=== PATIENT | female | born 1965 | race Caucasian/White ===

== ENCOUNTER 2017-09-30 15:28 | Emergency (ER) | payer BC, OTHER ==
[~2017-09-30] VITALS: Ht 165.1 cm; Wt 111.1 kg
[~2017-09-30 15:28] MED LIST: BACTRIM DS TAB1 EACH PO; DOXYCYCLINE 10100 MG PO; NOHOMEMEDICATIONS; NORCO 5-325 TA1 EACH PO; ULTRAM 50MG TAB50 MG PO
[2017-09-30 16:32] LABS: ABSOLUTE NEUTROPHILS 8.8 thou/uL (1.4-8.2); BASOPHILS 0.5 % (0.0-2.0); EOSINOPHILS 0.5 % (0.0-3.0); HEMATOCRIT 34.9 % (37.0-47.0); HEMOGLOBIN 11.9 gm/dL (12.0-15.0); LYMPHOCYTES 14.6 % (24.0-44.0); MCHC 34.1 g/dL (28.0-37.0); MCV 90.8 fL (80.0-100.0); MONOCYTES 7.5 % (1.0-8.0); PLATELET COUNT 332 thou/uL (150-400); POLYS 76.9 % (36.0-66.0); RBC 3.84 mil/uL (4.20-5.00); RDW 13.2 % (10.5-14.5); WBC 11.4 thou/uL (4.0-11.0)
[2017-09-30 16:39] LABS: CALCIUM 8.7 mg/dL (8.5-10.1); CREATININE 0.7 mg/dL (0.6-1.0); POTASSIUM 3.4 mmol/L (3.5-5.1)
[2017-09-30 16:44] LABS: ALBUMIN 3.3 g/dL (3.4-5.0); TOTAL BILIRUBIN 0.5 mg/dL (<0.1-1.0); TOTAL PROTEIN 8.1 g/dL (6.4-8.2)
[2017-09-30] MEDS ORDERED: CLEOCIN HCL150 MG PO (16:54)
[2017-09-30] MEDS ORDERED: HYDROCODONE-AP1 EAC6 PO (16:54)
[2017-09-30 18:12] VITALS: BP 150/72
== END 2017-09-30 18:25 | disposition home or self-care (01) ==
LOC: ER 15:28
PROVIDERS: Physician Assistant
DX: L03.116 Cellulitis of left lower limb (principal); R51 Headache; R63.0 Anorexia; M79.1 Myalgia; Z88.0 Allergy status to penicillin

== ENCOUNTER 2017-10-03 15:33 | Emergency (ER) | payer BC, OTHER ==
[~2017-10-03] VITALS: Ht 165.1 cm; Wt 111.1 kg
[~2017-10-03 15:33] MED LIST changes: +CLEOCIN HCL150 MG PO; +HYDROCODONE-AP1 EAC6 PO
[2017-10-03 16:29] VITALS: BP 143/73
[2017-10-03 16:56] LABS: ABSOLUTE NEUTROPHILS 5.7 thou/uL (1.4-8.2); BASOPHILS 1.1 % (0.0-2.0); EOSINOPHILS 2.3 % (0.0-3.0); HEMATOCRIT 35.2 % (37.0-47.0); HEMOGLOBIN 11.8 gm/dL (12.0-15.0); LYMPHOCYTES 26.7 % (24.0-44.0); MCH 31.1 pg (26.0-34.0); MCHC 33.6 g/dL (28.0-37.0); MCV 92.5 fL (80.0-100.0); MONOCYTES 8.2 % (1.0-8.0); PLATELET COUNT 362 thou/uL (150-400); POLYS 61.7 % (36.0-66.0); RDW 13.3 % (10.5-14.5); WBC 9.2 thou/uL (4.0-11.0)
[2017-10-03] MEDS ORDERED: CLEOCIN HCL150 MG PO (17:00)
[2017-10-03 17:06] LABS: CREATININE 0.8 mg/dL (0.6-1.0)
== END 2017-10-03 17:21 | disposition home or self-care (01) ==
LOC: ER 15:33
PROVIDERS: Physician Assistant
DX: L03.116 Cellulitis of left lower limb (principal); Z90.49 Acquired absence of other specified parts of digestive tract; Z88.0 Allergy status to penicillin

== ENCOUNTER → 2017-10-04 | Outpatient (CLI) | payer BC, OTHER ==
[~2017-10-04] VITALS: Ht 165.1 cm; Wt 111.9 kg
--- NOTE | ~2017-10-04 | HC ---
[facility] [place] [address] CONSULTATION Name: ROSAKRIS Room #: REG KEVIN Casey#: [id number] Admission: 10/04/17 Attend Phys: Roshan Orr Discharge: Date of : 65 Report #: [id number] THIS REPORT FOR: //name// CC: Roshan Rincon DATE OF SERVICE: 10/04/2017 HISTORY OF PRESENT ILLNESS: The patient is a 52-year-old woman who apparently was visiting family in [place] and when she suffered some mosquito bites to the left leg and went on to develop an infection of the leg. She was initially treated with Bactrim-DS 1 tablet twice daily as well as tramadol. The patient subsequently had improvement of the mosquito bite of the left leg, but she did make a trip to [place] and drove for 8 hours and then, she developed again some redness and swelling of the left leg and feelings of feverishness. On account of these problems, she visited with the Emergency Room on 09/30/2017 and 10/03/2017 and she was diagnosed to have possible cellulitis of the leg and she was prescribed clindamycin 150 mg twice daily, hydrocodone 5/acetaminophen 325 one tablet every 4 hours for 7 days. Obviously, she is not better and visited again in the Emergency Room yesterday and she advised the Emergency Room physician that I was seeing her previously, but no one bothered to notify me of her visit. The patient is still having some pain on the left leg as well as swelling and redness and feeling of feverishness. Culture of the skin lesion was obtained yesterday and unfortunately, we are using [facility] and the specimen is sent to [place], [place] and as of this time today, I have no results of the Gram stain. PAST MEDICAL HISTORY: Fractured left ankle with recurrent infection requiring removal of foreign bodies. 1981. Laparoscopic cholecystectomy. HISTORY OF PENICILLIN ALLERGY. SOCIAL HISTORY: Children grown. No tobacco, no alcohol. REVIEW OF SYSTEMS: Essentially not contributory besides feeling of feverishness and discomfort on the left leg. PHYSICAL EXAMINATION: GENERAL: This is a well-developed woman, not toxic looking, no distress. VITAL SIGNS: Temperature , pulse 78, respirations not obtained. BP 139/74, saturation 97% on room air. She was afebrile in the Emergency Room on 09/30/2017 and 10/03/2017. HEENMT: Within range. NECK: Supple, no thyromegaly. BREASTS: Deferred. LUNGS: Clear. HEART: S1, S2. No gallop or murmur. ABDOMEN: Soft, no masses or megaly. [address] [address] CONSULTATION Name: LEEKRIS Room #: REG KEVIN Casey#: [id number] Admission: 10/04/17 Attend Phys: Roshan Orr Discharge: Date of : 65 Report #: [id number] EXTREMITIES: Reveals surgical scars of previous open reduction and internal fixation of fracture, left tibia fibula. There is redness of the left leg as well as small skin defect with no purulence. NEUROLOGIC: Grossly within normal limits. LABORATORY DATA: On 09/30/2017 and 10/03/2017 in the Emergency Room revealed initially some hypokalemia, glucose 108. The white blood cell count initially was 11,400. It drops to 9200 on 10/03/2017, hemoglobin a bit low at 11.8 g/dL. Blood cultures were obtained on 09/30/2017 in afebrile patient and this blood culture remained negative. On 10/03/2017 at 16:45, culture of the left leg lesion was taken and we have no reports as of this time from [facility] yet. RADIOLOGY EVALUATION: An x-ray of the left ankle was obtained on 09/30/2017 and the patient has chronic changes on the left tibia and there is a plate and multiple screws on the left fibula. ASSESSMENT: 1. Cellulitis, left leg. 2. History of fracture, left tibia and fibula and open reduction internal fixation. 2. PENICILLIN ALLERGY. 3. History of and cholecystectomy. SUGGESTION: Recommend that the dose of clindamycin be increased to 300 mg by mouth 3 times daily for at least 7-10 days. The patient will also have an ESR and CRP to see if those are elevated because the radiologic findings of the left tibia are possibly compatible with chronic osteomyelitis. I will recommend that the patient not apply any topical ointments or creams to the left leg and I will visit with her again in 7 days if she is not completely better. <ELECTRONICALLY SIGNED> By: Roshan Rincon MD 10/05/17 0906 [id number] [id number] Roshan Rincon MD /nt
[2017-10-04 10:50] VITALS: BP 139/74
== END ==
LOC: SEN 07:50
DX: L03.116 Cellulitis of left lower limb (principal); Z88.0 Allergy status to penicillin

== ENCOUNTER → 2017-10-13 | Outpatient (CLI) | payer BC, OTHER ==
[~2017-10-13] VITALS: Ht 165.1 cm; Wt 111.9 kg
[2017-10-13 10:44] VITALS: BP 109/87
== END ==
LOC: SEN
DX: M79.605 Pain in left leg (principal); M79.604 Pain in right leg; L03.116 Cellulitis of left lower limb; R61 Generalized hyperhidrosis

== ENCOUNTER → 2017-10-17 | Outpatient (CLI) | payer BC, OTHER | LOC: NUC 08:15 | DX: M86.8X7 Other osteomyelitis, ankle and foot (principal) ==

== ENCOUNTER → 2017-11-02 | Outpatient (CLI) | payer BC, OTHER ==
[2017-11-02 11:16] VITALS: BP 109/77
== END ==
LOC: SEN 08:09
DX: Z09 Encounter for follow-up examination after completed treatment for conditions other than malignant neoplasm (principal); M86.8X6 Other osteomyelitis, lower leg; M17.0 Bilateral primary osteoarthritis of knee

== ENCOUNTER → 2018-02-02 | Outpatient (CLI) | payer BC, OTHER ==
[~2018-02-02] VITALS: Ht 160 cm; Wt 109.7 kg
[2018-02-02 10:39] VITALS: BP 157/85
== END ==
LOC: SEN 02-01 08:33
DX: M86.662 Other chronic osteomyelitis, left tibia and fibula (principal)

== ENCOUNTER 2018-02-09 05:35 | Day surgery (SDC) | payer BC, OTHER ==
[~2018-02-09] VITALS: Ht 165.1 cm; Wt 109.8 kg
--- NOTE | ~2018-02-09 | O ---
[facility] [place] [address] OPERATIVE REPORT Name: KRIS LEE Room #: [facility]..#: [id number] Admission: 02/09/18 Attend Phys: Dario Pabon MD Discharge: 02/09/18 Date of : 65 Report #: [id number] THIS REPORT FOR: //name// CC: Dario WEISS unknown DATE OF SERVICE: 02/09/2018 PREOPERATIVE DIAGNOSES: Left leg ulcer with chronic osteomyelitis and recent soft tissue skin ulceration. POSTOPERATIVE DIAGNOSES: Left leg ulcer with chronic osteomyelitis and recent soft tissue skin ulceration. PROCEDURE: Biopsy of skin and subcutaneous tissues and curettage and culture of distal tibial possible osteomyelitis. SURGEON: Dario Pabon M.D. INDICATIONS: This 53-year-old female has chronic osteomyelitis related to a previous tibia and fibular fracture, treated with surgical repair many years ago. She has had metal removal from the distal tibia in the past and apparently, that wound healed up adequately, but there is evidence of some ongoing chronic indolent osteomyelitis. She has remaining metal fixation in the distal fibula, but there is no problem with inflammation or skin breakdown in that region. She developed a new skin ulceration after an insect bite while traveling in [place] [address] Rincon is concerned about possible parasitic infection or Leishmaniasis as an etiology for this new skin lesion. He is also concerned about ongoing deep osteomyelitis. We have elected to debride the area of ulcer and send specimens both for pathology to evaluate for Leishmaniasis or other skin pathology and also cultures of both the skin and subcutaneous tissues and also the deeper tissues and bone. DESCRIPTION OF PROCEDURE: The patient was taken to the operating room, where she was placed under brief general anesthetic. She has been on chronic clindamycin. New IV antibiotics were held until after the procedure and new cultures were obtained. The left lower leg was meticulously prepped and draped. An Esmarch bandage was used to exsanguinate the lower leg and left as a gentle tourniquet at the upper leg. The skin ulcer is about 12-14 mm in diameter and along the medial border of the left lower leg, just posterior to the tibia. The surrounding skin edge was sharply incised and the specimen passed off to pathology for evaluation. The central necrotic area was excised as a small plug and also sent to pathology with cultures and instruction for evaluation for possible Leishmaniasis. The deeper tissues appeared to be fairly clean and adequately perfused. The ulcer did not actually extend directly down to bone and my initial impression would be that this is probably more of a superficial [address] [address] OPERATIVE REPORT Name: KRIS LEE Room #: DEP [facility] M.R.#: [id number] Admission: 02/09/18 Attend Phys: Dario Pabon MD Discharge: 02/09/18 Date of : 65 Report #: [id number] and new skin problem rather than a chronic osteomyelitis effect. With some limited dissection, I was able to reach down to the posterior aspect of the tibia. This area was gently curetted. However, the bone was certainly not directly exposed in this ulcer and I did not want to create more problems than benefit. There was no obvious bony defect and no obvious sinus tract into the bone. There was no obvious deep purulence. The surface of the bone was aggressively curetted, but I elected not to drill any holes or make any larger openings which might result in bony weakening. A deep culture was sent with some of the debris from bony curetting and the soft tissues at the medial and posterior border of the tibia. The tibia was carefully palpated both proximally and distally to look for any other areas of bony weakening or sinus tract, none were identified. The specimen for deep bone culture was sent separately from the more superficial cultures and the skin and soft tissue biopsy. The tourniquet was removed. Good hemostasis was confirmed. The wound was gently packed with gauze and a gentle compressive dressing was applied. These findings have been discussed with Dr. Rincon from Infectious Disease. I will plan to continue daily topical wound care and adjust her ongoing medical antibiotic treatment, pending the results of these biopsy findings. The patient is awakened and returned to the recovery room. She will be discharged home for ongoing topical wound care. I will plan to see her back in my office in 1-2 weeks. <ELECTRONICALLY SIGNED> By: Dario Pabon MD 02/10/18 1347 [id number] Dario Pabon MD /nt
--- NOTE | ~2018-02-09 | PATH ---
[facility] [address] [place] [address] PATHOLOGY RPT PROCEDURE Name: BRENDA ALONSO Room #: DEP [facility] M.R.#: [id number] Admission: 02/09/18 Date of : 65 Discharge: 02/09/18 Report #: [id number] Path Case #: [id number] [facility] Accession Number: [id number] . 01 Material submitted: . PART A: NECROTIC LEFT ANKLE WOUND PART B: LEFT ANKLE WOUND R/O LEISHMANIASIS . 01 Clinician provided ICD-10: M25.572 . 01 Clinical history: . Left ankle pain . 02 Diagnosis: A. Soft tissue "necrotic left ankle wound": - Extensive epidermal necrosis with underlying bacterial colonization - The GMS stain for fungus was negative. - The Giemsa stain did not reveal leishmania organism - See comment. . B. Skin "left ankle wound rule out leishmaniasis": - Dermal granulation tissue and calcification. - Extensive epidermal necrosis. - A giemsa stain was negative for leishmania organism - A GMS stain for fungus is being repeated an additional report will follow. [facility]/02/14/2018 . 02 Comment: A and B of this case was also be reviewed by Dr David Godoy . ([facility]/db; 02/10/2018) . 02 Addendum: . The GMS stain for fungus for part B1 and B2 are both negative. The diagnosis remains the same. ([facility]:pit 02/15/2018) . Professional services performed by [facility] at [facility], [address] [place] [address] , [place] [address]. [facility] performed by [facility] at [address] [place] [address], [address] [address]. [facility]/02/15/2018 Addendum Electronically Signed by Mp Johnson MD. Pathologist . 02 Electronically signed: . Mp Johnson MD, Pathologist [address] [place] [address] PATHOLOGY RPT PROCEDURE Name: BRENDA ALONSO [facility] Room #: DEP [facility].#: [id number] Admission: 02/09/18 Date of : 65 Discharge: 02/09/18 Report #: [id number] Path Case #: [id number] [facility]- [id number] . 01 Gross description: . A. The specimen is received in formalin, labeled "Brenda Alonso, necrotic left ankle lesion", is a 1.4 x 0.7 x 0.6 cm disrupted predominantly jenkins-brown necrotic, mummified skin. The specimen is serially section and entirely submitted in A1. . B. The specimen is received in formalin, labeled "Brenda Alonso, left ankle wound rule out leishmaniasis", is a cone-shaped gallego-white necrotic soft tissue with rim of skin. The specimen measures 2.2 x 1.5 x 1.0 cm per the specimen is serially section and entirely submitted in B1-B2. ([facility]; 02/09/2018) SHS/SHS . 02 Pathologist provided ICD-10: I96, B37.89, L92.8, E83.59 . 02 CPT . 437598, 583456, 460009, 044871, [id number], [id number] Specimen Comment: A courtesy copy of this report has been sent to Specimen Comment: [phone]. Specimen Comment: Report sent to Performed at: [address], [place] [id number] MD Mp Potts MD Phone: [phone] Performed at: [address] [id number] MD Emilia Powers MD Phone: [phone]
[2018-02-09 09:15] VITALS: BP 159/67
[2018-02-09 10:24] VITALS: BP 159/67
== END 2018-02-09 10:50 | disposition home or self-care (01) ==
LOC: OR 05:35 → TBA 05:35 → OR 10:50
DX: M86.8X6 Other osteomyelitis, lower leg (principal); L98.498 Non-pressure chronic ulcer of skin of other sites with other specified severity; Z98.890 Other specified postprocedural states; Z90.49 Acquired absence of other specified parts of digestive tract; Z88.0 Allergy status to penicillin; Z79.899 Other long term (current) drug therapy
CPT/HCPCS: 50010; 50101; 50386; 57091; 62110; 62900; 70005

== ENCOUNTER → 2018-02-23 | Outpatient (CLI) | payer BC, OTHER ==
[~2018-02-23] MED LIST changes: +TYLENOL325 MG PO
[2018-02-23 10:32] VITALS: BP 150/78
[2018-02-23 12:00] LABS: ABSOLUTE NEUTROPHILS 4.9 thou/uL (1.4-8.2); BASOPHILS 0.7 % (0.0-2.0); EOSINOPHILS 1.6 % (0.0-3.0); HEMATOCRIT 37.7 % (37.0-47.0); HEMOGLOBIN 13.2 gm/dL (12.0-15.0); LYMPHOCYTES 30.3 % (24.0-44.0); MCH 31.6 pg (26.0-34.0); MCV 90.2 fL (80.0-100.0); MONOCYTES 7.3 % (1.0-8.0); PLATELET COUNT 306 thou/uL (150-400); POLYS 60.1 % (36.0-66.0); RBC 4.18 mil/uL (4.20-5.00); RDW 13.4 % (10.5-14.5); WBC 8.1 thou/uL (4.0-11.0)
[2018-02-23 12:11] LABS: ALBUMIN 3.3 g/dL (3.4-5.0); ANION GAP 6 mmol/L (7-16); BUN 15 mg/dL (7-18); CALCIUM 9.1 mg/dL (8.5-10.1); CHLORIDE 104 mmol/L (98-107); CO2 30 mmol/L (21-32); CREATININE 0.7 mg/dL (0.6-1.0); GLUCOSE 90 mg/dL (74-106); POTASSIUM 4.2 mmol/L (3.5-5.1); SGOT 21 U/L (15-37); SGPT 29 U/L (30-65); SODIUM 140 mmol/L (136-145); TOTAL BILIRUBIN 0.2 mg/dL (<0.1-1.0); TOTAL PROTEIN 7.9 g/dL (6.4-8.2)
== END ==
LOC: SEN 09:13
PROVIDERS: Internal Medicine Infectious Disease
DX: Z09 Encounter for follow-up examination after completed treatment for conditions other than malignant neoplasm (principal); M86.662 Other chronic osteomyelitis, left tibia and fibula

== ENCOUNTER → 2018-03-28 | Outpatient (CLI) | payer BC, OTHER ==
[2018-03-28 12:11] LABS: ABSOLUTE NEUTROPHILS 4.9 thou/uL (1.4-8.2); BASOPHILS 0.6 % (0.0-2.0); EOSINOPHILS 1.9 % (0.0-3.0); HEMATOCRIT 40.2 % (37.0-47.0); HEMOGLOBIN 13.1 gm/dL (12.0-15.0); LYMPHOCYTES 28.4 % (24.0-44.0); MCH 30.1 pg (26.0-34.0); MCHC 32.6 g/dL (28.0-37.0); MCV 92.4 fL (80.0-100.0); MONOCYTES 7.7 % (1.0-8.0); PLATELET COUNT 308 thou/uL (150-400); POLYS 61.4 % (36.0-66.0); RBC 4.36 mil/uL (4.20-5.00); RDW 13.9 % (10.5-14.5)
== END ==
LOC: SEN 06:09
PROVIDERS: Internal Medicine Infectious Disease
DX: M86.662 Other chronic osteomyelitis, left tibia and fibula (principal); B37.3 Candidiasis of vulva and vagina; Z88.0 Allergy status to penicillin

== ENCOUNTER → 2018-06-19 | Outpatient (CLI) | payer BC, OTHER | LOC: HYPER 05-31 07:52 | DX: T81.89XA Other complications of procedures, not elsewhere classified, initial encounter (principal); L97.222 Non-pressure chronic ulcer of left calf with fat layer exposed; E78.5 Hyperlipidemia, unspecified; E66.9 Obesity, unspecified; M86.662 Other chronic osteomyelitis, left tibia and fibula; Z68.41 Body mass index [BMI] 40.0-44.9, adult; Y92.89 Other specified places as the place of occurrence of the external cause; Y83.8 Other surgical procedures as the cause of abnormal reaction of the patient, or of later complication, without mention of misadventure at the time of the procedure ==

== ENCOUNTER → 2018-07-03 | Outpatient (CLI) | payer BC, OTHER | LOC: HYPER 06:43 | DX: T81.89XD Other complications of procedures, not elsewhere classified, subsequent encounter (principal); L97.822 Non-pressure chronic ulcer of other part of left lower leg with fat layer exposed; M86.662 Other chronic osteomyelitis, left tibia and fibula; E78.5 Hyperlipidemia, unspecified; E66.9 Obesity, unspecified; Z68.41 Body mass index [BMI] 40.0-44.9, adult ==

== ENCOUNTER → 2018-07-18 | Outpatient (CLI) | payer BC, OTHER | LOC: HYPER 08:35 | DX: T81.89XD Other complications of procedures, not elsewhere classified, subsequent encounter (principal); L97.822 Non-pressure chronic ulcer of other part of left lower leg with fat layer exposed; M86.662 Other chronic osteomyelitis, left tibia and fibula; E78.5 Hyperlipidemia, unspecified; Y83.8 Other surgical procedures as the cause of abnormal reaction of the patient, or of later complication, without mention of misadventure at the time of the procedure ==

== ENCOUNTER → 2018-08-08 | Outpatient (CLI) | payer BC, OTHER | LOC: HYPER 08-01 09:05 | DX: T81.89XD Other complications of procedures, not elsewhere classified, subsequent encounter (principal); L97.222 Non-pressure chronic ulcer of left calf with fat layer exposed; M86.662 Other chronic osteomyelitis, left tibia and fibula; E78.5 Hyperlipidemia, unspecified; Y83.8 Other surgical procedures as the cause of abnormal reaction of the patient, or of later complication, without mention of misadventure at the time of the procedure ==

== ENCOUNTER → 2018-12-28 | Outpatient (CLI) | payer BC, OTHER | LOC: RAD 12:01 | DX: M17.11 Unilateral primary osteoarthritis, right knee (principal); M25.761 Osteophyte, right knee; I82.401 Acute embolism and thrombosis of unspecified deep veins of right lower extremity; L03.115 Cellulitis of right lower limb; Z88.8 Allergy status to other drugs, medicaments and biological substances; Z88.0 Allergy status to penicillin ==

== ENCOUNTER → 2019-01-23 | Outpatient (CLI) | payer BC, OTHER | LOC: HYPER 15:58 | DX: L97.211 Non-pressure chronic ulcer of right calf limited to breakdown of skin (principal); M86.662 Other chronic osteomyelitis, left tibia and fibula; E78.5 Hyperlipidemia, unspecified ==

== ENCOUNTER → 2019-09-12 | Outpatient (CLI) | payer BC, OTHER | LOC: RAD 14:44 | DX: M19.011 Primary osteoarthritis, right shoulder (principal); M17.11 Unilateral primary osteoarthritis, right knee; G89.29 Other chronic pain ==